=== PATIENT | female | born 1995 | race Caucasian/White ===

== ENCOUNTER 2017-06-24 07:13 | Day surgery (SDC) | payer BC ==
[~2017-06-24 07:13] MED LIST: Sodium Chloride 0.9% 10 ML Syringe FLUSH PRN; Sodium Chloride 0.9% 2.5 ML Syringe FLUSH PRN; ceFAZolin 1 GM in Premix Bag 1 BAG IV ONE
[2017-06-24] MEDS ORDERED: Midazolam 1 MG/ML 2 ML SDV ONE (08:15)
[2017-06-24] MEDS ORDERED: Propofol 200 MG/20 ML SDV ONE (08:15)
[2017-06-24] MEDS ORDERED: Scopolamine 1.5 MG Transdermal Patch TRDERM PRN (08:21)
[2017-06-24] MEDS ORDERED: Lactated Ringers 1,000 ML IV SCH (08:30)
--- NOTE | 2017-06-24 08:35 | PCM.PREANE ---
Preanesthetic Assessment - Anesthesia/Transfusion/Family Hx Anesthesia History: Prior Anesthesia Without Reaction Family History of Anesthesia Reaction: No Transfusion History: No Prior Transfusion(s) Intubation History: Unknown - Review of Systems General: No Symptoms Pulmonary: No Symptoms Cardiovascular: No Symptoms Gastrointestinal: Abdominal Pain Neurological: No Symptoms Other: Reports: None - Physical Assessment NPO Status Date: 06/23/17 NPO Status Time: 22:00 O2 Sat by Pulse Oximetry: 98 Respiratory Rate: 16 Vital Signs: Last Vital Signs Temp 36.5 C 06/24/17 08:00 Pulse 83 06/24/17 08:00 Resp 16 06/24/17 08:00 BP 99/63 06/24/17 08:00 Pulse Ox 98 06/24/17 08:00 Height: 1.65 m Weight: 51.256 kg ASA Class: 2 Mental Status: Alert & Oriented x3 Airway Class: Mallampati = 2 Dentition: Reports: Normal Dentition Thyro-Mental Finger Breadths: 3 Mouth Opening Finger Breadths: 3 ROM/Head Extension: Full Lungs: Clear to Auscultation, Normal Respiratory Effort Cardiovascular: Regular Rate, Regular Rhythm - Lab Values: Laboratory Last Values Urine HCG, Qual NEGATIVE (NEGATIVE) 06/24/17 07:59 - Allergies Allergies/Adverse Reactions: Allergies Allergy/AdvReac Type Severity Reaction Status Date / Time No Known Allergies Allergy Verified 06/21/17 17:14 - Blood Blood Available: No - Anesthesia Plan Pre-Op Medication Ordered: None - Acknowledgements Anesthesia Type Planned: General Anesthesia Pt an Appropriate Candidate for the Planned Anesthesia: Yes Alternatives and Risks of Anesthesia Discussed w Pt/Guardian: Yes Pt/Guardian Understands and Agrees with Anesthesia Plan: Yes PreAnesthesia Questionnaire - Past Health History Medical/Surgical History: Denies Medical/Surgical History Other HEENT History: wears glasses, hx of fx nose x3 Gastrointestinal History: Reports: Other (See Below) (h/o elevated AST and ALT with normal bilirubin. diagnosed with chronic cholecystitis) Musculoskeletal History: Reports: Fracture Other Musculoskeletal History: hx of fx right elbow and shoulder, hx of dislocated and fx patella Neurological History: Reports: Migraines Psychiatric History: Reports: Anxiety, Depression Hematologic History: Reports: Other (See Below) Other Hematologic History: hx of MRSA - Past Surgical History HEENT Surgical History: Reports: Eye Surgery, Naso-Sinus Surgery, Tonsillectomy GI Surgical History: Reports: EGD (rigid scope for removal of foreign body) Endocrine Surgical History: Reports: Other (See Below) Other Endocrine Surgeries/Procedures: cyst removed from parotid gland Musculoskeletal Surgical History: Reports: Other (See Below) Other Musculoskeletal Surgeries/Procedures:: hx of 2 right knee arthrotomys - SUBSTANCE USE Smoking Status *Q: Never Smoker Second Hand Smoke Exposure: No Days Per Week of Alcohol Use: 0 Recreational Drug Use History: No - HOME MEDS Home Medications: Home Meds Sertraline [Zoloft] 50 mg PO QAM 10/27/14 [History] Naratriptan HCl 2.5 mg PO ASDIRECTED PRN 06/21/17 [History] Ondansetron [Zofran ODT] 4 mg PO ASDIRECTED PRN 06/21/17 [History] traZODone 100 mg PO BEDTIME 06/21/17 [History] - CURRENT (IN HOUSE) MEDS Current Meds: Current Medications Lactated Ringer's (Ringers, Lactated) 1,000 mls @ 125 mls/hr IV ASDIRECTED AMA Scopolamine (Transderm-Scop) 1.5 mg TRDERM Q72H PRN PRN Reason: Nausea Sodium Chloride (Saline Flush) 10 ml FLUSH ASDIRECTED PRN PRN Reason: Keep Vein Open Sodium Chloride (Saline Flush) 2.5 ml FLUSH ASDIRECTED PRN PRN Reason: Keep Vein Open Discontinued Medications Cefazolin Sodium/Dextrose 1 gm (/ Premix) 50 mls @ 100 mls/hr IV ONETIME ONE Stop: 06/22/17 13:12 Midazolam HCl (Versed 1 Mg/Ml) Confirm Administered Dose 2 mg .ROUTE .STK-MED ONE Stop: 06/24/17 08:16 Propofol (Diprivan 20 Ml) Confirm Administered Dose 400 mg .ROUTE .STK-MED ONE Stop: 06/24/17 08:16
[2017-06-24] MEDS ORDERED: Bupivacaine 0.5% 30 ML SDV ONE (09:04)
[2017-06-24] MEDS ORDERED: fentaNYL 100 MCG/2 ML SDV ONE (09:12)
[2017-06-24] MEDS ORDERED: fentaNYL 250 MCG/5 ML SDV ONE (09:12)
[2017-06-24] MEDS ORDERED: Lidocaine 2% 5 ML SDV ONE (09:12)
[2017-06-24] MEDS ORDERED: Rocuronium 10 MG/ML 10 ML Syringe ONE (09:13)
[2017-06-24] MEDS ORDERED: Glycopyrrolate 0.2 MG/ML SDV ONE (09:13)
[2017-06-24] MEDS ORDERED: Ondansetron 4 MG/2 ML SDV ONE (09:13)
[2017-06-24] MEDS ORDERED: Neostigmine Methylsulfate 1 MG/ML 5 ML Syringe ONE (09:13)
[2017-06-24] MEDS ORDERED: Ketorolac 30 MG/ML SDV ONE (09:13)
--- NOTE | 2017-06-24 11:27 | PCM.OPNOTE ---
- General Post-Op/Procedure Note Date of Surgery/Procedure: 06/24/17 Operative Procedure(s): Laparoscopic cholecystectomy. Liver biopsy Findings: Mild-moderate galbladder distention Liver lesions on liver border Pre Op Diagnosis: biliary dyskinesia Post-Op Diagnosis: cholecystectomy with omental attachment. liver lesion on edge of liver Primary Surgeon: Chapis Vicente Pathology: 2 samples of <1mm liver lesions were obtained located on the edge of the liver. Rest of the liver had a normal appearance. EBL in mLs: 10 Complications: none Condition: Good
[2017-06-24] MEDS: fentaNYL 100 MCG/2 ML SDV IVPUSH PRN ×2 (11:45→11:50)
[2017-06-24] MEDS ORDERED: Acetaminophen/oxyCODONE 325-5 MG Tab PO PRN (11:59)
--- NOTE | 2017-06-24 12:01 | PCM.POSTAN ---
POST ANESTHESIA ASSESSMENT - MENTAL STATUS Mental Status: Alert - RESPIRATORY Respiratory Status: Respiratory Rate WNL, Airway Patent, O2 Saturation Stable - CARDIOVASCULAR CV Status: Pulse Rate WNL, Blood Pressure Stable - GASTROINTESTINAL GI Status: No Symptoms - PAIN Pain Score: 3 - POST OP HYDRATION Hydration Status: Adequate & Stable - OBSERVATIONS Free Text/Narrative:: no anesthesia problems
[2017-06-24] MEDS ORDERED: diphenhydrAMINE 50 MG/ML SDV IVPUSH ONE (12:30)
--- NOTE | 2017-06-24 13:23 | PCM48HPAN ---
Post Anesthesia Note - EVALUATION WITHIN 48HRS OF ANESTHETIC Vital Signs in Normal Range: Yes Patient Participated in Evaluation: Yes Respiratory Function Stable: Yes Airway Patent: Yes Cardiovascular Function Stable: Yes Hydration Status Stable: Yes Pain Control Satisfactory: Yes Nausea and Vomiting Control Satisfactory: Yes Mental Status Recovered: Yes Resp Rate: 10 - COMMENTS/OBSERVATIONS Free Text/Narrative:: no anesthesia problems
[2017-06-24 14:35] VITALS: BP 100/54
--- NOTE | 2017-06-24 20:20 | OR ---
SURGEON: VIDHYA GONZALEZ MD DATE OF PROCEDURE: 06/24/2017 PREOPERATIVE DIAGNOSIS: Biliary dyskinesia. POSTOPERATIVE DIAGNOSES: 1. Biliary dyskinesia. 2. Omental adhesions. 3. Right liver lobe lesion. PROCEDURE PERFORMED: 1. Laparoscopic cholecystectomy. 2. Lysis of adhesions. 3. Liver lesion biopsy. SNOWBOARD INSTRUCTOR: Dr. Jacinto Aldana. ANESTHESIA: General endotracheal anesthesia. FLUIDS: See anesthesia record. ESTIMATED BLOOD LOSS: 10 mL. FINDINGS: Mild to moderately inflamed gallbladder with a large amount of omental adhesions over the body of the gallbladder. Fatty-appearing liver lesions along the edge of the right lobe of the liver. Biopsies of these were taken. COMPLICATIONS: None. INDICATIONS: The patient is a 22-year-old female, who presents with biliary dyskinesia. We discussed the need for a laparoscopic cholecystectomy. We discussed laparoscopic and open approaches. We discussed the procedure, expected perioperative course, and risks including bleeding, infection, or damage to surrounding structures. If I should be unable to perform it safely laparoscopically, we will convert to open. The patient verbalized understanding and wishes to proceed. PROCEDURE IN DETAIL: The patient was brought into the OR and placed on the OR table in supine position. A time-out was completed verifying the patient's name, age, date of , allergies, and procedure to be performed. General endotracheal anesthesia was induced. The patient's left arm was tucked at her side and a Yousif catheter placed. The abdomen was prepped and draped in usual standard fashion. A 0.5% Marcaine plain was used to anesthetize the infraumbilical fold. A #15 blade was then used to make an incision along the infraumbilical fold. Cautery was used to dissect down through the subcutaneous fat down to the level of the fascia. The fascia was elevated using Heladio's and incised sharply with the Metzenbaum scissors. Using S retractors, I then dissected down to the posterior rectus sheath. This was elevated with tonsils and incised sharply with the Metzenbaum scissors. A 12 mm Ana trocar was then placed in the abdomen and the abdomen insufflated to a pressure of 12 mmHg. Stay stitches were placed on either side of the fascia to secure the trocar in place. A 5 mm 30-degree scope was inserted in the abdomen and I inspected the area underneath my initial trocar placement. No damage to surrounding structures was noted. The patient was then placed into reverse Trendelenburg position and have been slightly to the left. A 5 mm trocars were placed under direct visualization in the following locations, one in the epigastric area, one in the right flank, and one 2 fingerbreadths below the right subcostal margin along the midclavicular line. The dome of the gallbladder was grasped with an atraumatic grasper through the right flank port and elevated. The gallbladder itself did not appear distended, but had a large amount of omental adhesions throughout the body. A hook cautery was used to take these adhesions down carefully until the infundibulum was exposed. The remainder of the adhesions toward the proximal aspect of the gallbladder were taken down using a Radha dissector and suction. Once I identified the infundibulum and it was completely freed of adhesions, I grasped it with an atraumatic grasper through the midclavicular port and retracted it right and laterally. Gentle blunt dissection, as well as hook cautery was used to dissect out the cystic artery and duct. I then dissected the proximal third of the gallbladder off the cystic plate. Once my critical view was achieved, I doubly clipped and ligated the cystic duct and artery. Electrocautery was used to free up the gallbladder from the remainder of the gallbladder fossa. Once the gallbladder was free, it was then placed in a laparoscopic bag and removed through the infraumbilical port site. I then replaced the Ana trocar and re-insufflated the abdomen. I inspected my operative field. It appeared hemostatic with no evidence of bile leakage. The inferior edge of the liver, however, had several globular appearing lesions. These appeared fatty and did not seem to infiltrate through the liver. I grasped these with a Radha grasper and took biopsies using a laparoscopic scissor. These were then sent as liver lesion biopsies. The abdomen was irrigated with normal saline until it ran clear. The trocars were removed under direct visualization. The abdomen was allowed to desufflate. I then closed the infraumbilical port site fascia using interrupted 0 Vicryl sutures. I then closed the subcutaneous fat with interrupted 3-0 Vicryl. The skin was closed with a running 4-0 Monocryl suture. The 5 mm trocar sites were closed with interrupted 4-0 Monocryl. Steri-Strips and sterile dressings were applied. The patient tolerated the procedure well and was taken to PACU in stable condition. HAWA APPIAH /[id number]
== END 2017-06-24 13:20 | disposition home or self-care (01) ==
LOC: MW.SDS 07:13
PROVIDERS: ATTEND Surgery
DX: K81.1 Chronic cholecystitis (principal); K66.0 Peritoneal adhesions (postprocedural) (postinfection); K76.9 Liver disease, unspecified; F41.9 Anxiety disorder, unspecified; F32.9 Major depressive disorder, single episode, unspecified; Z79.899 Other long term (current) drug therapy; Z72.0 Tobacco use
CPT/HCPCS: 47001; 47562; 81025; A9270; J0690; J1200; J1885; J2250; J2405; J3010; J7120; 00790; 88304; 88305; J2704

== ENCOUNTER 2017-10-26 15:46 | Emergency (ER) | payer BC ==
--- NOTE | 2017-10-26 15:50 | EDM.PDOC ---
ED HPI GENERAL MEDICAL PROBLEM - General Source of Information: Reports: Patient History Limitations: Reports: No Limitations abdomen Pain Score (Numeric/FACES): 7 - General Chief Complaint: Syncope Stated Complaint: DIZZY Time Seen by Provider: 10/26/17 15:50 - History of Present Illness INITIAL COMMENTS - FREE TEXT/NARRATIVE: Is Dr. Dominique dictating addendum note is a supervising physician on this case. I personally seen and evaluated the patient and agree with the above history and physical. She says that she has not had diarrhea just the nausea and vomiting as stated above and she's been trying to hydrate but doesn't S early feel that she has kept up. She complained of a diffuse headache but no neck pain that pain and has no chest pain shortness of breath or extremity weakness. The patient here in the ED is up and ambulatory interactive and nontoxic appearing. We will give her IV fluids and do the workup as described above. We will reevaluate pending those results. (Joanne Dominique) 22 year old Female with no significant PMH presenting with a syncopal episode that occurred early today. Patient states she was at work when she suddenly felt dizzy and past out. She states she regained conciseness after her coworkers found her on the floor. The fall was unwitnessed however patient does believe she hit her head on the floor. She does not recall the fall, states that she presently does have a headache and is also having symptoms of small spots in her visual field over the past couple of hours. Patient is also complaining of Right hip pain. Patient denies any previous history of syncopal episodes, she does not have any significant cardiovascular history. Patient states she fell ill and had several episodes of N/Ving that started Wednesday night after coming home from a [employer]. She had several more episodes of N/Ving on Wednesday but denies any vomiting episodes today. Patient denies any other symptoms. Patient denies on any symptoms, states she has a IUD in place. ( Alverto Telles) - Related Data Allergies Allergy/AdvReac Type Severity Reaction Status Date / Time No Known Allergies Allergy Verified 10/26/17 17:15 Home Meds: Home Meds Sertraline [Zoloft] 50 mg PO QAM 10/27/14 [History] traZODone 100 mg PO BEDTIME 06/21/17 [History] Past Medical History - Past Health History Medical/Surgical History: Denies Medical/Surgical History Other HEENT History: wears glasses, hx of fx nose x3 Gastrointestinal History: Reports: Other (See Below) (h/o elevated AST and ALT with normal bilirubin. diagnosed with chronic cholecystitis) Musculoskeletal History: Reports: Fracture Other Musculoskeletal History: hx of fx right elbow and shoulder, hx of dislocated and fx patella Neurological History: Reports: Migraines Psychiatric History: Reports: Anxiety, Depression Hematologic History: Reports: Other (See Below) Other Hematologic History: hx of MRSA - Past Surgical History HEENT Surgical History: Reports: Eye Surgery, Naso-Sinus Surgery, Tonsillectomy GI Surgical History: Reports: EGD (rigid scope for removal of foreign body) Endocrine Surgical History: Reports: Other (See Below) Other Endocrine Surgeries/Procedures: cyst removed from parotid gland Musculoskeletal Surgical History: Reports: Other (See Below) Other Musculoskeletal Surgeries/Procedures:: hx of 2 right knee arthrotomys ED ROS GENERAL - Review of Systems Review Of Systems: ROS reveals no pertinent complaints other than HPI. - Physical Exam Exam: See Below Exam Limited By: No Limitations General Appearance: Alert Eye Exam: Right Eye: Normal Inspection, PERRL, Vision Changes, Other (Pain on light being flashed in Right eye) Ears: Normal External Exam Nose: Normal Inspection, Normal Mucosa, No Blood Throat/Mouth: Normal Inspection, Normal Lips Head Exam: Other (patient complaing of tenderness to palpation of the Bilateral occipital area( right worse then left)) Neck: Normal Inspection, Full Range of Motion Respiratory/Chest: No Respiratory Distress, Lungs Clear, Normal Breath Sounds Cardiovascular: Normal Peripheral Pulses, Regular Rate, Rhythm, No JVD GI/Abdominal: Normal Bowel Sounds, Soft, Non-Tender, Pelvis Stable, Other ( Patient is complaining of Right pelvis/buttock pain on palpation and movement. ) Neuro Exam (Abbreviated): Alert, Oriented, CN II-XII Intact, Normal Cognition, Normal Gait, Normal Reflexes, No Motor/Sensory Deficits Back Exam: Normal Inspection, Full Range of Motion Extremities: Normal Inspection, Normal Range of Motion, Non-Tender, No Pedal Edema, Normal Capillary Refill Psychiatric: Normal Affect, Normal Mood Skin Exam: Warm, Dry, Intact, Normal Color, No Rash EKG INTERPRETATION Rhythm: NSR [place]: Normal P-Wave: Present QRS: Normal ST-T: Normal QT: Normal - Vital Signs Last Recorded V/S: Last Vital Signs Temp 36.8 C 10/26/17 16:09 Pulse 50 L 10/26/17 17:34 Resp 18 10/26/17 16:09 BP 106/56 L 10/26/17 17:34 Pulse Ox 99 10/26/17 16:09 Orthostatic Blood Pressure [ 107/68 Standing] Orthostatic Blood Pressure [ 103/60 Sitting] Orthostatic Blood Pressure [ 106/56 Supine] - Orders/Labs/Meds Orders: Active Orders 24 hr Category Date Time Status Orthostatic Vital Signs [RC] ASDIRECTED Care 10/26/17 16:23 Active Head wo Cont [CT] Stat Exams 10/26/17 16:23 Taken Pelvis 1V or 2V [CR] Stat Exams 10/26/17 16:23 Taken UA W/MICROSCOPIC [URIN] Stat Lab 10/26/17 16:25 Ordered Acetaminophen [Tylenol] Med 10/26/17 18:32 Once 325 mg PO NOW ONE Sodium Chloride 0.9% [Saline Flush] Med 10/26/17 16:29 Active 10 ml FLUSH ASDIRECTED PRN Sodium Chloride 0.9% [Saline Flush] Med 10/26/17 16:29 Active 2.5 ml FLUSH ASDIRECTED PRN Saline Lock Insert [OM.PC] Stat Oth 10/26/17 16:29 Ordered Medication Orders Acetaminophen (Tylenol) 325 mg PO NOW ONE Stop: 10/26/17 18:33 Sodium Chloride (Saline Flush) 10 ml FLUSH ASDIRECTED PRN PRN Reason: Keep Vein Open Sodium Chloride (Saline Flush) 2.5 ml FLUSH ASDIRECTED PRN PRN Reason: Keep Vein Open Labs: Laboratory Tests 10/26/17 10/26/17 10/26/17 Range/Units 16:20 16:20 16:20 WBC 5.12 (4.0-11.0) K/uL RBC 4.57 (4.30-5.90) M/uL Hgb 12.4 (12.0-16.0) g/dL Hct 38.0 (36.0-46.0) % MCV 83.2 (80.0-98.0) fL MCH 27.1 (27.0-32.0) pg MCHC 32.6 (31.0-37.0) g/dL RDW Std Deviation 45.0 (28.0-62.0) fl RDW Coeff of Kevin 15 (11.0-15.0) % Plt Count 199 (150-400) K/uL MPV 9.50 (7.40-12.00) fL Neut % (Auto) 48.6 (48.0-80.0) % Lymph % (Auto) 40.0 (16.0-40.0) % Tripp % (Auto) 10.2 (0.0-15.0) % Eos % (Auto) 0.8 (0.0-7.0) % Baso % (Auto) 0.4 (0.0-1.5) % Neut # (Auto) 2.5 (1.4-5.7) K/uL Lymph # (Auto) 2.1 (0.6-2.4) K/uL Tripp # (Auto) 0.5 (0.0-0.8) K/uL Eos # (Auto) 0.0 (0.0-0.7) K/uL Baso # (Auto) 0.0 (0.0-0.1) K/uL Nucleated RBC % 0.0 /100WBC Nucleated RBCs # 0 K/uL Sodium 139 (136-145) mmol/L Potassium 3.9 (3.5-5.1) mmol/L Chloride 104 (98-107) mmol/L Carbon Dioxide 29.8 (21.0-32.0) mmol/L BUN 17 (7.0-18.0) mg/dL Creatinine 0.8 (0.6-1.0) mg/dL Est Cr Clr Drug Dosing 91.57 mL/min Estimated GFR (MDRD) > 60.0 ml/min Glucose 84 (74-106) mg/dL Calcium 9.7 (8.5-10.1) mg/dL Magnesium 1.9 (1.8-2.4) mg/dL Total Bilirubin 0.2 (0.2-1.0) mg/dL AST 16 (15-37) IU/L ALT 20 (14-63) IU/L Alkaline Phosphatase 57 (46-116) U/L Troponin I < 0.050 (0.000-0.056) ng/mL Total Protein 7.4 (6.4-8.2) g/dL Albumin 4.3 (3.4-5.0) g/dL Globulin 3.1 (2.0-3.5) g/dL Albumin/Globulin Ratio 1.4 (1.3-2.8) HCG, Qual NEGATIVE (NEG) Urine Color Urine Appearance Urine pH (5.0-8.0) Ur Specific [place] (1.001-1.035) Urine Protein (NEGATIVE) mg/dL Urine Glucose (UA) (NEGATIVE) mg/dL Urine Ketones (NEGATIVE) mg/dL Urine Occult Blood (NEGATIVE) Urine Nitrite (NEGATIVE) Urine Bilirubin (NEGATIVE) Urine Urobilinogen (<2.0) EU/dL Ur Leukocyte Esterase (NEGATIVE) Urine RBC (0-2/HPF) Urine WBC (0-5/HPF) Ur Epithelial Cells (NONE-FEW) Urine Bacteria (NEGATIVE) 10/26/17 Range/Units 16:25 WBC (4.0-11.0) K/uL RBC (4.30-5.90) M/uL Hgb (12.0-16.0) g/dL Hct (36.0-46.0) % MCV (80.0-98.0) fL MCH (27.0-32.0) pg MCHC (31.0-37.0) g/dL RDW Std Deviation (28.0-62.0) fl RDW Coeff of Kevin (11.0-15.0) % Plt Count (150-400) K/uL MPV (7.40-12.00) fL Neut % (Auto) (48.0-80.0) % Lymph % (Auto) (16.0-40.0) % Tripp % (Auto) (0.0-15.0) % Eos % (Auto) (0.0-7.0) % Baso % (Auto) (0.0-1.5) % Neut # (Auto) (1.4-5.7) K/uL Lymph # (Auto) (0.6-2.4) K/uL Tripp # (Auto) (0.0-0.8) K/uL Eos # (Auto) (0.0-0.7) K/uL Baso # (Auto) (0.0-0.1) K/uL Nucleated RBC % /100WBC Nucleated RBCs # K/uL Sodium (136-145) mmol/L Potassium (3.5-5.1) mmol/L Chloride (98-107) mmol/L Carbon Dioxide (21.0-32.0) mmol/L BUN (7.0-18.0) mg/dL Creatinine (0.6-1.0) mg/dL Est Cr Clr Drug Dosing mL/min Estimated GFR (MDRD) ml/min Glucose (74-106) mg/dL Calcium (8.5-10.1) mg/dL Magnesium (1.8-2.4) mg/dL Total Bilirubin (0.2-1.0) mg/dL AST (15-37) IU/L ALT (14-63) IU/L Alkaline Phosphatase (46-116) U/L Troponin I (0.000-0.056) ng/mL Total Protein (6.4-8.2) g/dL Albumin (3.4-5.0) g/dL Globulin (2.0-3.5) g/dL Albumin/Globulin Ratio (1.3-2.8) HCG, Qual (NEG) Urine Color YELLOW Urine Appearance CLEAR Urine pH 5.5 (5.0-8.0) Ur Specific [place] 1.010 (1.001-1.035) Urine Protein NEGATIVE (NEGATIVE) mg/dL Urine Glucose (UA) NEGATIVE (NEGATIVE) mg/dL Urine Ketones NEGATIVE (NEGATIVE) mg/dL Urine Occult Blood LARGE H (NEGATIVE) Urine Nitrite NEGATIVE (NEGATIVE) Urine Bilirubin NEGATIVE (NEGATIVE) Urine Urobilinogen 0.2 (<2.0) EU/dL Ur Leukocyte Esterase TRACE (NEGATIVE) Urine RBC 0-2 (0-2/HPF) Urine WBC 1-3 (0-5/HPF) Ur Epithelial Cells FEW (NONE-FEW) Urine Bacteria RARE (NEGATIVE) Meds: Medications Generic Name Dose Route Start Last Admin Trade Name Freq PRN Reason Stop Dose Admin Acetaminophen 325 mg 10/26/17 18:32 Tylenol PO 10/26/17 18:33 NOW ONE Sodium Chloride 10 ml 10/26/17 16:29 Saline Flush FLUSH ASDIRECTED PRN Keep Vein Open Sodium Chloride 2.5 ml 10/26/17 16:29 Saline Flush FLUSH ASDIRECTED PRN Keep Vein Open Discontinued Medications Generic Name Dose Route Start Last Admin Trade Name Lorne PRN Reason Stop Dose Admin Sodium Chloride 1,000 mls @ 999 mls/hr 10/26/17 16:28 10/26/17 16:34 Normal Saline IV 10/26/17 17:28 999 mls/hr STAT ONE Administration Departure - Departure Time of Disposition: 06:35 Condition: Good - Discharge Information *PRESCRIPTION DRUG MONITORING PROGRAM REVIEWED*: Not Applicable *COPY OF PRESCRIPTION DRUG MONITORING REPORT IN PATIENT SUZY: Not Applicable - Departure Disposition: Home, Self-Care 01 Clinical Impression: Syncopal episodes - Discharge Information Instructions: Concussion, Adult, [id number], Post-Concussion Syndrome, Easy- to-Read, Near-Syncope, [id number], Dehydration, Adult, [id number] Referrals: Nicolas Ramos MD [Primary Care Provider] - Forms: ED Department Discharge Additional Instructions: Please avoid any streneous activity for next week until you have a follow up with your PCP. Care Plan Goals: Tylenol OTC for pain control, Plenty of hydration for the dehydration induced syncopal episodes. PCP Appt. with Dr. Ramos in 1-2 days for outpatient follow up. - Problem List & Annotations (1) Syncopal episodes SNOMED Code(s): 010579046 Code(s): R55 - SYNCOPE AND COLLAPSE Status: Acute Current Visit: Yes (2) Head injury, acute, with loss of consciousness SNOMED Code(s): 795500544 Code(s): S06.9X9A - UNSP INTRACRANIAL INJURY W LOC OF UNSP DURATION, INIT Status: Acute Current Visit: Yes - Problem List Review Problem List Initiated/Reviewed/Updated: Yes - My Orders Last 24 Hours: My Active Orders 10/26/17 16:23 Orthostatic Vital Signs [RC] ASDIRECTED Head wo Cont [CT] Stat Pelvis 1V or 2V [CR] Stat 10/26/17 16:25 UA W/MICROSCOPIC [URIN] Stat 10/26/17 18:32 Acetaminophen [Tylenol] 325 mg PO NOW ONE - Assessment/Plan Last 24 Hours: My Active Orders 10/26/17 16:23 Orthostatic Vital Signs [RC] ASDIRECTED Head wo Cont [CT] Stat Pelvis 1V or 2V [CR] Stat 10/26/17 16:25 UA W/MICROSCOPIC [URIN] Stat 10/26/17 18:32 Acetaminophen [Tylenol] 325 mg PO NOW ONE Assessment:: Assessment: 22 year old Female presenting with first episode of Syncope which resulted in loss of conciseness and fall resulting in head injury. Most likely etiology of Syncope is dehydration with possible electrolyte imbalance , other etiologies to rule out include cardiac in nature, . Patient may of also suffered concussion with possible head fracture. Plan: Initial Plan 1. For Syncopal episodes shall get EKG, Labs including CBC, CMP, Mag, Trops, UA and B-Hcg for possible etiology. IV Fluids NS for hydration. 2. For the Head injury CT w/o Contrast of head to rule out fx and possible bleeding etiology. 3. Right Pelvis pain- Xray of Right pelvis for pain and discomfort. Followup Plan: All labs, imaging, EKG are within normal limits. Patients most likely had dehydration induced syncope, and headaches are due to head injury. Patient needs to follow up with her PCP for outpatient follow up. OTC Tylenol for pain control and plenty of hydration. (Alverto Telles)
[2017-10-26] MEDS ORDERED: Sodium Chloride 0.9% 1,000 ML IV ONE (16:28)
[2017-10-26] MEDS ORDERED: Sodium Chloride 0.9% 10 ML Syringe FLUSH PRN (16:29)
[2017-10-26] MEDS ORDERED: Sodium Chloride 0.9% 2.5 ML Syringe FLUSH PRN (16:29)
[2017-10-26 17:06] LABS: CHLORIDE,CL 104 mmol/L (98-107); SODIUM,NA 139 mmol/L (136-145)
[2017-10-26] MEDS ORDERED: Acetaminophen 325 MG Tab PO ONE (18:32)
[2017-10-26 19:05] VITALS: BP 103/47
--- NOTE | 2017-10-27 12:51 | CT ---
EXAM DATE: 10/26/17 PATIENT'S AGE: 22 Patient: VIDHYA LEVY Facility: [place], [place] Site . Site : 1995 Study: CT Head [id number]/2018 5:32:24 PM Ordering Physician: Catina Rubio Final Report: INDICATION: Trauma. Headaches TECHNIQUE: Non-contrast CT of the head is submitted. No comparisons. FINDINGS: The ventricles, sulci and gyri are of normal size, shape and contour. Midline structures are centrally located. No convincing evidence of intra- or extra- axial fluid collections. IMPRESSION: 1. No radiographic evidence of acute intracranial abnormalities. Dictated by Kalen Mathis MD @ 10/26/2017 5:36:29 PM Please note that all CT scans at this facility use dose modulation, iterative reconstruction, and/or weight-based dosing when appropriate to reduce radiation dose to as low as reasonably achievable. Dictated by: Kalen Mathis MD @ 10/26/2017 17:36:33 (Electronic Signature) Report Signed by Proxy. [facility]
--- NOTE | 2017-10-27 12:53 | CR ---
EXAM DATE: 10/26/17 PATIENT'S AGE: 22 Patient: VIDHYA LEVY Facility: [place], [place] Site . Site : 1997 Study: XRay Pelvis [id number]/10/2018 5:36:15 PM Ordering Physician: Catina Rubio Final Report: INDICATION: Fell, right side pelvic pain TECHNIQUE: Pelvis radiograph 1 view right COMPARISON: None FINDINGS: Bones: No acute fractures or aggressive bone lesions are identified. Joints: The hip joint is unremarkable. The visualized sacroiliac joints are unremarkable in appearance. The pubic symphysis is normal in appearance. Soft tissues: Unremarkable. The visualized bowel gas pattern of the pelvis is unremarkable in appearance. No radiopaque foreign bodies are seen. IUD seen in the midline pelvis. IMPRESSION: 1. No acute osseous injuries or abnormalities are noted. Dictated by: Silviano Clayton MD @ 10/26/2017 17:59:15 (Electronic Signature) Report Signed by Proxy. [facility]
== END 2017-10-26 18:50 | disposition home or self-care (01) ==
LOC: MW.ED 15:46
DX: R55 Syncope and collapse (principal); S09.90XA Unspecified injury of head, initial encounter; R10.2 Pelvic and perineal pain; W19.XXXA Unspecified fall, initial encounter
CPT/HCPCS: 36415; 70450; 72170; 80053; 81001; 83735; 84484; 84703; 85025; 93005; 96360; 99285; A9270; J7040; 99284